=== PATIENT | male | born 1965 | race Caucasian/White ===

== ENCOUNTER 2023-12-23 06:53 | Day surgery (SDC) | payer BC ==
[2023-12-23] MEDS ORDERED: LIDOCAINE 1% (10MG/ML) FOR IV START INTRADERMA PRN (07:29)
[2023-12-23] MEDS: LACTATED RINGERS 1,000 ML IV SCH (07:30)
[2023-12-23 07:43] VITALS: TEMP 97.5
[2023-12-23] MEDS ORDERED: PROPOFOL 10 MG/ML 20 ML VIAL IV ONE (08:00)
--- NOTE | 2023-12-23 08:24 | P.PCN ---
Date of Procedure: 12/23/23 Procedure(s) Performed: BRIEF HISTORY: Patient is a 58-year-old pleasant whites male scheduled for an elective colonoscopy as a part of evaluation of change in bowel habits. PROCEDURE PERFORMED: Colonoscopy with biopsy. PREOPERATIVE DIAGNOSIS: Change in bowel habits. IV sedation per Anesthesia. PROCEDURE: After informed consent was obtained, the patient, was brought into the endoscopy unit. IV sedation was administered by Anesthesia under continuous monitoring. Digital rectal examination was normal. Initially the Olympus CF-160 flexible video colonoscope was then inserted in the rectum, gradually advanced into the cecum without any difficulty. Careful examination was performed as the scope was gradually being withdrawn. Ileocecal valve and the appendiceal orifice were visualized and appeared normal. Prep was excellent. Mucosa of the cecum, ascending colon, transverse colon, descending colon, sigmoid colon, and rectum appeared normal. In the rectum there was a 3 mm and a 5 mm polyp that was removed by cold biopsy. Scattered sigmoidal reticulosis. Retroflexion was performed in the rectum and no lesions were seen. The patient tolerated the procedure well. IMPRESSION: 3 mm and 5 mm proximal rectal polyp status post removal by cold biopsy Scattered sigmoid diverticulosis RECOMMENDATIONS: Findings of this examination were discussed with the patient as well as a family. He was advised to follow with the biopsy results. If the biopsy result adenoma he can have a repeat colonoscopy in 5 years.
[2023-12-23 08:56] VITALS: BP 130/80; PULSE 70; RESP 16
== END 2023-12-23 09:10 | disposition home or self-care (01) ==
LOC: ORWHC2ENDO 06:53
PROVIDERS: ATTEND Internal Medicine Gastroenterology
DX: K62.1 Rectal polyp (principal); K57.30 Diverticulosis of large intestine without perforation or abscess without bleeding; E78.5 Hyperlipidemia, unspecified; Z79.899 Other long term (current) drug therapy
CPT/HCPCS: 88305; 45380; J2704